=== PATIENT | female | born 1980 | race Caucasian/White ===

== ENCOUNTER → 2017-08-26 | Outpatient (REF) | payer OTHER ==
[2017-08-26 17:26] LABS: HCG, SERUM QUANTITATIVE 85588 MIU/ML
[2017-08-26 17:54] LABS: HEMOGLOBIN 12.1 g/dl (12.0-16.0); MEAN CORPUSCULAR HEMOGLOBIN 29.9 pg (27.0-33.0); MEAN CORPUSCULAR HGB CONC 32.7 g/dl (32.0-36.5); MEAN CORPUSCULAR VOLUME 91.4 fl (80.0-96.0); PLATELET COUNT, AUTOMATED 370 10^3/uL (150-450); RED BLOOD COUNT 4.05 10^6/uL (4.00-5.40); RED CELL DISTRIBUTION WIDTH 12.8 % (11.5-14.5); WHITE BLOOD COUNT 10.6 10^3/uL (4.0-10.0)
[2017-08-27 09:58] LABS: RUBELLA IgG QUALITATIVE IMMUNE (IMMUNE)
[2017-08-27 10:13] LABS: HBsAg Prenatal NEGATIVE (NEGATIVE)
[2017-08-27 10:28] LABS: HIV 1&2 SCREEN CENTAUR NEGATIVE (NEGATIVE)
== END ==
LOC: M LAB REF 16:32
DX: O36.80X0 Pregnancy with inconclusive fetal viability, not applicable or unspecified (principal)
CPT/HCPCS: 86762

== ENCOUNTER → 2017-09-21 | Outpatient (REF) | payer OTHER ==
[2017-09-21 17:20] LABS: FREE T4 0.74 NG/DL (0.76-1.46)
== END ==
LOC: M LAB REF 16:27
DX: E04.2 Nontoxic multinodular goiter (principal)

== ENCOUNTER → 2018-01-12 | Outpatient (CLI) | payer OTHER ==
[2018-01-12 11:18] LABS: HEMATOCRIT 34.3 % (36.0-47.0); HEMOGLOBIN 11.6 g/dl (12.0-15.5); MEAN CORPUSCULAR HEMOGLOBIN 30.6 pg (27.0-33.0); MEAN CORPUSCULAR HGB CONC 33.8 g/dl (32.0-36.5); MEAN CORPUSCULAR VOLUME 90.5 fl (80.0-96.0); PLATELET COUNT, AUTOMATED 286 10^3/uL (150-450); RED BLOOD COUNT 3.79 10^6/uL (4.00-5.40); WHITE BLOOD COUNT 10.8 10^3/uL (4.0-10.0)
[2018-01-12 12:09] LABS: GLUCOSE CHALLENGE TEST 1 HOUR 120 MG/DL (LESS THAN 140)
== END ==
LOC: M LAB 09:29
DX: Z34.82 Encounter for supervision of other normal pregnancy, second trimester (principal); Z3A.00 Weeks of gestation of pregnancy not specified
CPT/HCPCS: 82950

== ENCOUNTER 2018-03-15 12:25 | Outpatient (CLI) | payer OTHER ==
[2018-03-15 14:04] LABS: HEMATOCRIT 36.4 % (36.0-47.0); HEMOGLOBIN 12.2 g/dl (12.0-15.5); MEAN CORPUSCULAR HEMOGLOBIN 30.4 pg (27.0-33.0); MEAN CORPUSCULAR HGB CONC 33.5 g/dl (32.0-36.5); MEAN CORPUSCULAR VOLUME 90.8 fl (80.0-96.0); PLATELET COUNT, AUTOMATED 226 10^3/uL (150-450); RED BLOOD COUNT 4.01 10^6/uL (4.00-5.40); WHITE BLOOD COUNT 7.8 10^3/uL (4.0-10.0)
[2018-03-15 14:39] LABS: ALT/SGPT 15 U/L (12-78); AST/SGOT 17 U/L (7-37); BILIRUBIN,TOTAL 0.2 MG/DL (0.2-1.0); CREATININE FOR GFR 0.66 MG/DL (0.55-1.30); GLOMERULAR FILTRATION RATE > 60.0 (>60); LDH LACTATE DEHYDROGENASE 177 U/L (84-246)
[2018-03-15 14:55] LABS: TOTAL PROTEIN,RANDOM URINE < 5.0 MG/DL (0.0-12.0)
[2018-03-15 16:15] LABS: URIC ACID 5.5 MG/DL (2.6-6.0)
[2018-03-15 16:53] LABS: CREATININE,RANDOM URINE 14.4 MG/DL
== END 2018-03-15 18:30 | disposition home or self-care (01) ==
LOC: M LDO 12:25
DX: O13.9 Gestational [pregnancy-induced] hypertension without significant proteinuria, unspecified trimester (principal); Z3A.36 36 weeks gestation of pregnancy
CPT/HCPCS: 59025

== ENCOUNTER → 2018-03-16 | Outpatient (REF) | payer OTHER ==
[2018-03-16 15:45] LABS: CREATININE, URINE 40.9 MG/DL; URINE TOTAL PROTEIN < 5.0 MG/DL (0-12)
[2018-03-16 15:55] LABS: CREATININE 24 HOUR, URINE 1513.3 MG/24HR (600-1800); TOTAL VOLUME, URINE 3700 ML
== END ==
LOC: M LAB REF 14:38
DX: Z01.89 Encounter for other specified special examinations (principal)

== ENCOUNTER 2018-03-22 15:22 | Inpatient (IN) | payer OTHER ==
[2018-03-22] MEDS: LR 1,000 ML IV (16:41)
[2018-03-22 17:46] LABS: HEMATOCRIT 39.7 % (36.0-47.0); HEMOGLOBIN 13.5 g/dl (12.0-15.5); MEAN CORPUSCULAR HEMOGLOBIN 30.9 pg (27.0-33.0); MEAN CORPUSCULAR VOLUME 90.8 fl (80.0-96.0); PLATELET COUNT, AUTOMATED 205 10^3/uL (150-450); RED BLOOD COUNT 4.37 10^6/uL (4.00-5.40); RED CELL DISTRIBUTION WIDTH 14.2 % (11.5-14.5); WHITE BLOOD COUNT 8.4 10^3/uL (4.0-10.0)
[2018-03-22 18:21] LABS: ALT/SGPT 16 U/L (12-78); AST/SGOT 17 U/L (7-37); BILIRUBIN,TOTAL 0.2 MG/DL (0.2-1.0); CREATININE FOR GFR 0.55 MG/DL (0.55-1.30); GLOMERULAR FILTRATION RATE > 60.0 (>60); LDH LACTATE DEHYDROGENASE 176 U/L (84-246); TOTAL PROTEIN,RANDOM URINE < 5.0 MG/DL (0.0-12.0); URIC ACID 5.4 MG/DL (2.6-6.0)
[2018-03-22 18:21] LABS: CREATININE,RANDOM URINE 27.1 MG/DL
[2018-03-22] MEDS: miSOPROStol 50 MCG 1/2 TAB (S0191) PO ×2 (19:22→23:32)
[2018-03-23] MEDS: LR 1,000 ML IV (00:22)
[2018-03-23] MEDS: miSOPROStol 50 MCG 1/2 TAB (S0191) PO (03:35)
[2018-03-23 05:40] LABS: HEMATOCRIT 36.3 % (36.0-47.0); HEMOGLOBIN 12.2 g/dl (12.0-15.5); MEAN CORPUSCULAR HEMOGLOBIN 30.7 pg (27.0-33.0); MEAN CORPUSCULAR HGB CONC 33.6 g/dl (32.0-36.5); MEAN CORPUSCULAR VOLUME 91.4 fl (80.0-96.0); PLATELET COUNT, AUTOMATED 201 10^3/uL (150-450); RED BLOOD COUNT 3.97 10^6/uL (4.00-5.40); RED CELL DISTRIBUTION WIDTH 14.1 % (11.5-14.5); WHITE BLOOD COUNT 9.3 10^3/uL (4.0-10.0)
[2018-03-23 05:57] LABS: ALT/SGPT 14 U/L (12-78); AST/SGOT 16 U/L (7-37); BILIRUBIN,TOTAL 0.2 MG/DL (0.2-1.0); GLOMERULAR FILTRATION RATE > 60.0 (>60); LDH LACTATE DEHYDROGENASE 155 U/L (84-246)
[2018-03-23] MEDS ORDERED: ceFAZolin 2 GM/D5W 50 ML IV BAG (J0690 PER 500MG) As Ordered (07:32)
[2018-03-23] MEDS ORDERED: BICITRA 30ML SOLN UDC As Ordered (07:32)
[2018-03-23] MEDS: BICITRA 30ML SOLN UDC PO (08:00)
[2018-03-23] MEDS ORDERED: MORPHINE PRES-FREE INJ 10 MG/10 ML VIAL (J2274) As Ordered (08:01)
[2018-03-23] MEDS ORDERED: OXYTOCIN INJ 10 UNITS/ML VIAL (J2590) As Ordered ×4 (08:10→08:35)
[2018-03-23] MEDS ORDERED: ePHEDrine SULFATE 25 MG/5 ML(5MG/ML) SYRINGE As Ordered (08:26)
[2018-03-23] MEDS ORDERED: PHENYLephrine HCL 500 MCG/5 ML (100MCG/ML) SYRINGE (J2370) As Ordered (08:26)
[2018-03-23] MEDS ORDERED: ONDANSETRON 4MG/2ML VIAL (J2405) As Ordered (08:29)
[2018-03-23] MEDS ORDERED: dexameTHASONE 4 MG/ML 1ML VIAL (J1100) As Ordered (08:29)
[2018-03-23 08:33] LABS: CORD GAS ABE V -2.8; CORD GAS HCO3 V 22.3 MEQ/L; CORD GAS O2 SAT V 56.6 %; CORD GAS PH V 7.364 UNITS; CORD GAS PO2 V 22.6 mmHg; CORD GAS SBC V 21.1 MEQ/L; CORD GAS TCO2 V 23.5 MEQ/L
[2018-03-23 08:34] LABS: CORD GAS ABE A 0.8; CORD GAS PCO2 A 60.8 mmHg; CORD GAS PH A 7.296 UNITS; CORD GAS PO2 A 24.5 mmHg; CORD GAS SBC A 24.1 MEQ/L; CORD GAS TCO2 A 30.8 MEQ/L
[2018-03-23] MEDS ORDERED: OXYTOCIN 30 UNITS IN 0.9% NaCl 500ML IV BAG (J2590) As Ordered (08:56)
[2018-03-23] MEDS ORDERED: LR 1,000 ML IV (09:00)
[2018-03-23] MEDS ORDERED: fentaNYL 100 MCG/2 ML INJECTION (J3010) IV (09:00)
[2018-03-23] MEDS: OXYTOCIN DRIP 30 UNITS in APPROPRIATE DILUENT 1 EA IV (09:00)
[2018-03-23] MEDS ORDERED: NALBUPHINE HCL 10 MG/ML AMP (J2300) IV (09:00)
[2018-03-23] MEDS ORDERED: ONDANSETRON 4MG/2ML VIAL (J2405) IV (09:00)
[2018-03-23] MEDS: MEASLES,MUMPS,RUBELLA VACCINE INJ (MMR-II) (90707) SC (19:54)
[2018-03-23] MEDS: RHOGAM 300 MCG (1500 IU) INJ (J2790) IM (19:54)
[2018-03-24 06:57] LABS: HEMATOCRIT 29.4 % (36.0-47.0); HEMOGLOBIN 9.9 g/dl (12.0-15.5); MEAN CORPUSCULAR HEMOGLOBIN 30.8 pg (27.0-33.0); MEAN CORPUSCULAR HGB CONC 33.7 g/dl (32.0-36.5); MEAN CORPUSCULAR VOLUME 91.6 fl (80.0-96.0); PLATELET COUNT, AUTOMATED 206 10^3/uL (150-450); RED BLOOD COUNT 3.21 10^6/uL (4.00-5.40); WHITE BLOOD COUNT 12.4 10^3/uL (4.0-10.0)
[2018-03-24] MEDS: PRENATAL VITAMINS CHEWABLE TABLET PO (09:09)
[2018-03-24] MEDS: NORCO, ANEXSIA 5/325MG TABLET (HYDROcodone/ACETAMINOPHEN) PO ×3 (09:09→19:34)
[2018-03-24] MEDS: CitaloPRAM (CeleXA) 10 MG TABLET PO (09:09)
[2018-03-24] MEDS: IBUPROFEN 800 MG TAB PO ×2 (09:10→18:11)
[2018-03-24] MEDS: INFLUENZA QUADRIVALENT PF VACCINE 0.5ML SYRINGE (90686) IM (09:10)
[2018-03-25] MEDS: IBUPROFEN 800 MG TAB PO ×2 (02:52→11:12)
[2018-03-25] MEDS: NORCO, ANEXSIA 5/325MG TABLET (HYDROcodone/ACETAMINOPHEN) PO (05:45)
[2018-03-25] MEDS: PRENATAL VITAMINS CHEWABLE TABLET PO (08:14)
[2018-03-25] MEDS: CitaloPRAM (CeleXA) 10 MG TABLET PO (08:14)
== END 2018-03-25 13:30 | disposition home or self-care (01) | DRG 766 ==
LOC: M LDI 15:22 → M OBS 03-23 10:39
PROVIDERS: Obstetrics & Gynecology
PROC: 10D00Z1 Extraction of Products of Conception, Low, Open Approach (ICD-10-PCS; principal; 2018-03-22 07:49)
PROC: 3E0DXGC Introduction of Other Therapeutic Substance into Mouth and Pharynx, External Approach (ICD-10-PCS; 2018-03-22 07:49)
DX: O13.4 Gestational [pregnancy-induced] hypertension without significant proteinuria, complicating childbirth (principal); Z37.0 Single live birth; Z3A.37 37 weeks gestation of pregnancy; O76 Abnormality in fetal heart rate and rhythm complicating labor and delivery; O09.523 Supervision of elderly multigravida, third trimester; O69.89X0 Labor and delivery complicated by other cord complications, not applicable or unspecified

== ENCOUNTER → 2019-03-22 | Outpatient (REF) | payer OTHER ==
[~2019-03-22] MED LIST: CITA10TA6 PO; IBUP80TA PO; IRON27TA2 PO; MAPA500T2 PO; PERCOCET PO; PRENTAB9 PO; VITA200016 PO
[2019-03-22 18:48] LABS: HEMOGLOBIN 13.4 g/dl (12.0-15.5); MEAN CORPUSCULAR HEMOGLOBIN 30.4 pg (27.0-33.0); MEAN CORPUSCULAR HGB CONC 33.5 g/dl (32.0-36.5); MEAN CORPUSCULAR VOLUME 90.7 fl (80.0-96.0); PLATELET COUNT, AUTOMATED 370 10^3/uL (150-450); RED BLOOD COUNT 4.41 10^6/uL (4.00-5.40); WHITE BLOOD COUNT 9.3 10^3/uL (4.0-10.0)
[2019-03-22 19:25] LABS: HCG, SERUM QUANTITATIVE 48417 MIU/ML
[2019-03-22 19:50] LABS: RUBELLA IgG QUALITATIVE IMMUNE (IMMUNE)
[2019-03-22 20:19] LABS: HIV 1&2 SCREEN CENTAUR NEGATIVE (NEGATIVE)
[2019-03-24 09:40] LABS: HEPATITIS C VIRUS ABY INDEX 0.1 INDEX (<0.8)
== END ==
LOC: M LAB REF 16:18
PROVIDERS: ATTEND Obstetrics & Gynecology
DX: O36.80X0 Pregnancy with inconclusive fetal viability, not applicable or unspecified (principal)

== ENCOUNTER → 2019-07-03 | Outpatient (CLI) | payer OTHER ==
--- NOTE | 2019-07-03 15:35 | REP ---
Clinical: Thyroid nodule. Technique: Real time baird scale ultrasound examination using linear high frequency transducer. Findings: The thyroid gland is relatively normal in contour, size, and parenchymal echo texture. Right lobe measures 5.2 x 2.3 x 1.3 cm. Isthmus measures 4 mm in width. Left lobe measures 5.8 x 2.0 x 1.3 cm. Multiple scattered cysts with small internal echogenic foci are noted throughout the bilateral thyroid lobes measuring up to 11 x 4 x 10 mm on the right and 9 x 4 x 9 mm on the left all having a similar morphology and likely representing scattered colloid cysts. No further significant irregular nodule is appreciated. Impression: Multiple scattered bilateral colloid cysts. Electronically Signed by Moshe Candelaria MD 07/03/2019 03:26 P
== END ==
LOC: M RAD 11:46
PROVIDERS: ATTEND Family Medicine
DX: E04.1 Nontoxic single thyroid nodule (principal)

== ENCOUNTER → 2019-07-12 | Outpatient (REF) | payer OTHER ==
[2019-07-12 17:40] LABS: CREATININE, URINE 68.4 MG/DL; URINE TOTAL PROTEIN 6.1 MG/DL (0-12)
[2019-07-12 18:28] LABS: CREATININE 24 HOUR, URINE 1436.4 MG/24HR (600-1800); TOTAL PROTEIN 24 HOUR URINE 128.1 MG/24HR (50-150)
== END ==
LOC: M LAB REF 15:53
PROVIDERS: ATTEND Obstetrics & Gynecology
DX: O13.2 Gestational [pregnancy-induced] hypertension without significant proteinuria, second trimester (principal)

== ENCOUNTER → 2019-08-03 | Outpatient (CLI) | payer OTHER ==
[2019-08-03 11:38] LABS: HEMATOCRIT 37.1 % (36.0-47.0); HEMOGLOBIN 12.2 g/dl (12.0-15.5); MEAN CORPUSCULAR HEMOGLOBIN 30.4 pg (27.0-33.0); MEAN CORPUSCULAR HGB CONC 32.9 g/dl (32.0-36.5); MEAN CORPUSCULAR VOLUME 92.5 fl (80.0-96.0); PLATELET COUNT, AUTOMATED 270 10^3/uL (150-450); RED BLOOD COUNT 4.01 10^6/uL (4.00-5.40)
== END ==
LOC: M LAB 09:32
PROVIDERS: ATTEND Obstetrics & Gynecology
DX: Z34.82 Encounter for supervision of other normal pregnancy, second trimester (principal); Z3A.00 Weeks of gestation of pregnancy not specified

== ENCOUNTER → 2019-08-11 | Outpatient (CLI) | payer OTHER | LOC: M LAB 08:04 | PROVIDERS: ATTEND Obstetrics & Gynecology | DX: R73.02 Impaired glucose tolerance (oral) (principal) ==

== ENCOUNTER 2019-10-01 03:10 | Outpatient (CLI) | payer OTHER ==
[2019-10-01] VITALS (8 sets, daily range): BP systolic 113–139; BP diastolic 64–75
[~2019-10-01] VITALS: Ht 176.5 cm; Wt 100.2 kg
[2019-10-01] MEDS ORDERED: PERCOCET 5MG/325MG TAB PO ONE (05:30)
[2019-10-01] MEDS ORDERED: LR 1,000 ML IV SCH (05:47)
[2019-10-01 06:17] LABS: BASO % 0.3 % (0.0-1.0); EOS # 0.1 10^3/uL (0.0-0.5); EOS % 1.1 % (0.0-3.0); HEMATOCRIT 36.6 % (36.0-47.0); LYMPH % 19.7 % (24.0-44.0); MEAN CORPUSCULAR HEMOGLOBIN 30.5 pg (27.0-33.0); MEAN CORPUSCULAR HGB CONC 32.8 g/dl (32.0-36.5); MEAN CORPUSCULAR VOLUME 93.1 fl (80.0-96.0); MONO # 0.8 10^3/uL (0.0-0.8); MONO % 8.2 % (0.0-5.0); NEUTROPHILS # 7.1 10^3/uL (1.5-8.5); NEUTROPHILS % 70.2 % (36.0-66.0); PLATELET COUNT, AUTOMATED 240 10^3/uL (150-450); RED BLOOD COUNT 3.93 10^6/uL (4.00-5.40); WHITE BLOOD COUNT 10.1 10^3/uL (4.0-10.0)
[2019-10-01] MEDS ORDERED: SILVER NITRATE APPLICATOR As Ordered ONE (08:49)
[2019-10-01] MEDS ORDERED: LIDOCAINE 2% W/EPIN INJ 20ML **PRES FREE XX ONE (09:45)
[2019-10-01] MEDS ORDERED: SILVER NITRATE APPLICATOR TOP ONE (10:15)
--- NOTE | 2019-10-01 10:42 | IPN ---
DATE: 10/01/2019 39-year-old G3, P2 female at 35 and 1/7 weeks gestation presents with severe pain near her tail bone for the past 7 days. Pain became worse. The pain is not relieved with Tylenol or a dose of ibuprofen. She denies fevers. The area appears swollen. OBJECTIVE: Blood pressure 136/75, pulse 81, afebrile. She appears unremarkable. Head and neck exam: Normal. Abdomen: Nontender, gravid, soft. heart tone is category 1. Contractions: None. 4 cm fluctuant area in the gluteal fold. This is exquisitely tender. Minimal cellulitis. Extremities: Nontender. ASSESSMENT: 39-year-old G3, P2 female at 35 and 1/7 weeks gestation with pilonidal cyst. PLAN: Consult general surgery for possible incision and drainage of pilonidal cyst. Start an IV and obtain a complete blood count. Patient will followup as per surgery recommendation.
[2019-10-01] MEDS ORDERED: OXYC1TAB23 PO (14:17)
== END 2019-10-01 10:54 | disposition home or self-care (01) ==
LOC: M LDO 03:10
PROVIDERS: ATTEND Specialist
DX: O99.89 Other specified diseases and conditions complicating pregnancy, childbirth and the puerperium (principal); M53.3 Sacrococcygeal disorders, not elsewhere classified; R22.2 Localized swelling, mass and lump, trunk; L05.91 Pilonidal cyst without abscess; Z3A.35 35 weeks gestation of pregnancy

== ENCOUNTER → 2019-10-10 | Outpatient (REF) | payer OTHER ==
[~2019-10-10] MED LIST changes: +OXYC1TAB23 PO
== END ==
LOC: M LAB REF 16:11
PROVIDERS: ATTEND Obstetrics & Gynecology
DX: Z34.83 Encounter for supervision of other normal pregnancy, third trimester (principal); Z3A.00 Weeks of gestation of pregnancy not specified

== ENCOUNTER 2019-10-25 05:34 | Inpatient (IN) | payer OTHER ==
[2019-10-25] VITALS (8 sets, daily range): BP systolic 111–132; BP diastolic 71–89
[~2019-10-25] VITALS: Ht 176.5 cm; Wt 100.1 kg
[~2019-10-25 05:34] MED LIST changes: +IRON65TA2 PO; +VITAD1000T PO
[2019-10-25] MEDS ORDERED: TUMS500C PO (05:53)
[2019-10-25] MEDS ORDERED: BICITRA 30ML SOLN UDC PO ONE (06:00)
[2019-10-25] MEDS ORDERED: ceFAZolin SOD 2 GM in IV 1 EA IV ONE (06:00)
[2019-10-25 06:37] LABS: HEMATOCRIT 38.2 % (36.0-47.0); HEMOGLOBIN 12.8 g/dl (12.0-15.5); MEAN CORPUSCULAR HEMOGLOBIN 30.3 pg (27.0-33.0); MEAN CORPUSCULAR HGB CONC 33.5 g/dl (32.0-36.5); MEAN CORPUSCULAR VOLUME 90.3 fl (80.0-96.0); PLATELET COUNT, AUTOMATED 212 10^3/uL (150-450); RED BLOOD COUNT 4.23 10^6/uL (4.00-5.40); WHITE BLOOD COUNT 8.5 10^3/uL (4.0-10.0)
[2019-10-25] MEDS ORDERED: OXYTOCIN DRIP 30 UNITS in IV 1 EA IV SCH (07:21)
[2019-10-25] MEDS ORDERED: RHOGAM 300 MCG (1500 IU) INJ (J2790) IM SCH (07:30)
[2019-10-25] MEDS ORDERED: ONDANSETRON 4 MG TAB PO PRN (07:30)
[2019-10-25] MEDS ORDERED: IBUPROFEN 600 MG TAB PO PRN (07:30)
[2019-10-25] MEDS ORDERED: MEASLES,MUMPS,RUBELLA VACCINE INJ (MMR-II) (90707) SC SCH (07:30)
[2019-10-25] MEDS ORDERED: MOM 30ML SUSPENSION UDC PO PRN (07:30)
[2019-10-25] MEDS ORDERED: diphenhydrAMINE 50MG/ML VIAL (J1200) IV PRN (07:42)
[2019-10-25] MEDS ORDERED: NALBUPHINE HCL 10 MG/ML AMP (J2300) IV PRN (07:42)
[2019-10-25] MEDS ORDERED: ONDANSETRON 4MG/2ML VIAL IV PRN ×2 (07:42→08:45)
[2019-10-25] MEDS ORDERED: NALOXONE INJ 0.4MG/1ML VIAL (J2310 PER 1MG) IV PRN ×2 (07:42)
[2019-10-25] MEDS ORDERED: METOCLOPRAMIDE INJ 10MG/2ML VIAL (J2765 PER 1) IV PRN (07:42)
[2019-10-25] MEDS ORDERED: MORPHINE PRES-FREE INJ 10 MG/10 ML VIAL (J2274) As Ordered ONE (08:05)
[2019-10-25] MEDS ORDERED: KETOROLAC 60 MG/2 ML VIAL As Ordered ONE (08:05)
[2019-10-25] MEDS ORDERED: dexameTHASONE 4 MG/ML 1ML VIAL (J1100 PER 1MG) As Ordered ONE (08:05)
[2019-10-25] MEDS ORDERED: PHENYLephrine HCL 500 MCG/5 ML (100MCG/ML) SYRINGE (J2370) As Ordered ONE (08:05)
[2019-10-25] MEDS ORDERED: OXYTOCIN 30 UNITS IN 0.9% NaCl 500ML IV BAG (J2590) As Ordered ONE ×2 (08:05→09:05)
[2019-10-25] MEDS ORDERED: ONDANSETRON 4MG/2ML VIAL As Ordered ONE (08:05)
[2019-10-25 08:21] LABS: CORD GAS HCO3 A 29.4 MEQ/L; CORD GAS PCO2 A 65.7 mmHg; CORD GAS PH A 7.269 UNITS; CORD GAS PO2 A 16.1 mmHg; CORD GAS TCO2 A 31.4 MEQ/L
[2019-10-25 08:22] LABS: CORD GAS ABE A 0.6; CORD GAS O2 SAT A 26.6 %; CORD GAS SBC A 23.2 MEQ/L
[2019-10-25 08:25] LABS: CORD GAS PCO2 V 51.5 mmHg; CORD GAS PH V 7.321 UNITS; CORD GAS PO2 V 35.3 mmHg
[2019-10-25 08:26] LABS: CORD GAS ABE V -0.9; CORD GAS O2 SAT V 76.5 %; CORD GAS SBC V 23.2 MEQ/L; CORD GAS TCO2 V 27.6 MEQ/L
[2019-10-25] MEDS ORDERED: fentaNYL 100 MCG/2 ML INJECTION (J3010) IV PRN (08:45)
[2019-10-25] MEDS: PRENATAL VITAMINS CHEWABLE TABLET PO SCH (09:00)
[2019-10-25] MEDS: DOCUSATE SODIUM 100 MG CAP PO SCH ×2 (09:00→20:10)
--- NOTE | 2019-10-25 09:44 | RO ---
DATE OF PROCEDURE: 10/25/2019 Ryan is 39-year-old female who presented at term for an elective repeat section. She also desires permanent tubal sterilization. PREOPERATIVE DIAGNOSES: 1. Term for elective repeat section. 2. Desires permanent tubal sterilization. POSTOPERATIVE DIAGNOSES: PROCEDURES DONE DURING THIS ADMISSION: 1. Repeat section. 2. Revision of old scar. 3. Bilateral salpingectomy. ANESTHESIA: Spinal. SURGEON: Eliot Lozada DO HEDDLE MACHINE OPERATOR: Eliseo Jim DO COMPLICATIONS: None. ESTIMATED BLOOD LOSS: 600 mL. FINDINGS: Live male infant in occiput transverse position, scores 9 and 9, weight 6 pounds 7 ounces, normal-appearing tubes and ovaries. DESCRIPTION OF PROCEDURE: After obtaining informed consent, the patient was taken to the operating room where spinal anesthetic was found to be adequate. She was then draped and prepped in usual sterile fashion in supine position with the help of my assistant professor of life sciences, Dr. Jim. An elliptical incision was made over the old scar. The old scar was removed. The incision was then carried down to the fascia. The fascia was incised in midline fashion and carried through laterally. Superior aspect of the fascia was then grasped with two Jone clamps. Dissected off the rectus muscles sharply. The inferior aspect was dissected off in similar fashion. Rectus muscles in midline fashion. Peritoneal cavity entered bluntly. Superior and inferior dissection of the peritoneum was then done with good visualization of the bladder. At this point, a Mobius skin retractor was placed. A low-transverse uterine incision was made. was delivered in atraumatic fashion. Nose and mouth bulb suctioned. Cord doubly clamped and cut, and was handed over to awaiting warmer. Cord blood and cord gas were sent. Placenta removed manually. Uterus cleared of all clot and debris, and the uterine incision was then repaired in two separate layers of 0 Vicryl suture. All superficial bleeders were coagulated, and the skin was reapproximated in subcuticular fashion using 3-0 Vicryl on a Giancarlo. Dermabond placed. Dressing placed. The patient tolerated the procedure well. She was then transferred to recovery room in stable condition.
[2019-10-26] MEDS: PERCOCET 5MG/325MG TAB PO PRN ×4 (02:10→20:29)
[2019-10-26 02:12] VITALS: BP 109/65
[2019-10-26 05:45] VITALS: BP 103/64
[2019-10-26 07:32] LABS: HEMATOCRIT 30.7 % (36.0-47.0); MEAN CORPUSCULAR HEMOGLOBIN 30.7 pg (27.0-33.0); MEAN CORPUSCULAR HGB CONC 33.6 g/dl (32.0-36.5); MEAN CORPUSCULAR VOLUME 91.4 fl (80.0-96.0); PLATELET COUNT, AUTOMATED 179 10^3/uL (150-450); RED BLOOD COUNT 3.36 10^6/uL (4.00-5.40); WHITE BLOOD COUNT 10.6 10^3/uL (4.0-10.0)
[2019-10-26] MEDS: DOCUSATE SODIUM 100 MG CAP PO SCH ×2 (07:37→20:29)
[2019-10-26] MEDS: PRENATAL VITAMINS CHEWABLE TABLET PO SCH (07:37)
[2019-10-26 07:41] LABS: HEMOGLOBIN 10.3 g/dl (12.0-15.5)
[2019-10-26] MEDS ORDERED: PERCOCET PO (08:23)
[2019-10-26] MEDS ORDERED: IBUP80TA PO (08:23)
[2019-10-26 10:52] VITALS: BP 138/82
[2019-10-26] MEDS: CitaloPRAM (CeleXA) 10 MG TABLET PO SCH (11:11)
[2019-10-26 13:59] VITALS: BP 134/83
[2019-10-26] MEDS: IBUPROFEN 800 MG TAB PO PRN (16:36)
[2019-10-26 18:02] VITALS: BP 131/79
[2019-10-26 21:53] VITALS: BP 134/79
[2019-10-27] MEDS: IBUPROFEN 800 MG TAB PO PRN ×2 (01:06→12:40)
[2019-10-27] MEDS: PERCOCET 5MG/325MG TAB PO PRN ×2 (01:07→07:48)
[2019-10-27 01:56] VITALS: BP 135/81
[2019-10-27 06:16] VITALS: BP 126/71
[2019-10-27] MEDS: DOCUSATE SODIUM 100 MG CAP PO SCH (09:18)
[2019-10-27] MEDS: PRENATAL VITAMINS CHEWABLE TABLET PO SCH (09:18)
[2019-10-27] MEDS: CitaloPRAM (CeleXA) 10 MG TABLET PO SCH (09:18)
--- NOTE | 2019-10-28 08:19 | DSES ---
DATE OF ADMISSION: 10/25/2019 DATE OF DISCHARGE: 10/27/2019 FINAL DIAGNOSIS: 1. Term for elective repeat section. 2. Desires permanent tubal sterilization. PROCEDURES DONE DURING THIS ADMISSION: 1. Repeat section. 2. Bilateral salpingectomy. 3. Revision of old scar. CONDITION ON DISCHARGE: Stable. DISCHARGE INSTRUCTIONS: The patient is instructed to call if there is any severe bleeding, pain or temperature greater than 101. She was given a prescription for Percocet as needed for pain as well as Motrin. BRIEF HISTORY: Ryan is a 39-year-old female, 2, para 1-0-0-1, with a history of prior section who is being admitted at term for elective repeat section. She underwent the above-noted procedure and was then transferred to maternity for postoperative care. Postoperatively, she did well. She remained afebrile throughout her hospital stay. On postoperative day #, she was found to be stable. She was then discharged home to follow up in approximately 2 weeks for an incision check.
== END 2019-10-27 15:00 | disposition home or self-care (01) | DRG 785 ==
LOC: M LDI 05:34 → M OBS 10:13
PROVIDERS: ADMIT Obstetrics & Gynecology; ATTEND Obstetrics & Gynecology
PROC: 0UB70ZZ Excision of Bilateral Fallopian Tubes, Open Approach (ICD-10-PCS; 2019-10-25)
PROC: 10D00Z1 Extraction of Products of Conception, Low, Open Approach (ICD-10-PCS; principal; 2019-10-25 07:30)
DX: O34.211 Maternal care for low transverse scar from previous cesarean delivery (principal); Z37.0 Single live birth; Z3A.39 39 weeks gestation of pregnancy; O09.523 Supervision of elderly multigravida, third trimester; Z30.2 Encounter for sterilization

== ENCOUNTER → 2020-02-01 | Outpatient (CLI) | payer OTHER ==
[~2020-02-01] MED LIST changes: +D31000TA2 PO; +TUMS500C PO; -VITAD1000T PO
[2020-03-31 12:08] LABS: BLOOD UREA NITROGEN 14 MG/DL (7-18); CHLORIDE LEVEL 103 MEQ/L (98-107); CREATININE FOR GFR 1.03 MG/DL (0.55-1.30); GLOMERULAR FILTRATION RATE > 60.0 (>58); GLUCOSE, FASTING 78 MG/DL (70-100); POTASSIUM SERUM 4.9 MEQ/L (3.5-5.1); SODIUM LEVEL 139 MEQ/L (136-145)
[2020-03-31 12:09] LABS: CALCIUM LEVEL 9.3 MG/DL (8.5-10.1); CARBON DIOXIDE LEVEL 29.8 mmol/L (20-29)
[2020-03-31 12:11] LABS: HEMATOCRIT 43.3 % (36.0-47.0); HEMOGLOBIN 14.1 g/dl (12.0-15.5)
== END ==
LOC: M LAB 07:49
PROVIDERS: ATTEND Podiatrist
DX: Z01.818 Encounter for other preprocedural examination (principal); M72.2 Plantar fascial fibromatosis; M79.671 Pain in right foot

== ENCOUNTER 2020-02-09 07:26 | Day surgery (SDC) | payer OTHER ==
[~2020-02-09 07:26] MED LIST changes: +BACITRACIN PWD 50,000 UNITS VIAL ONE; +BUPIVACAINE HCL 0.5% 30 ML VIAL ONE; +LIDOCAINE 2% MDV 20ML VIAL ONE; +NEOSPORIN GU IRRIG 20 ML VIAL ONE
[2020-02-09] MEDS ORDERED: fentaNYL 100 MCG/2 ML INJECTION (J3010) ONE (07:58)
[2020-02-09] MEDS ORDERED: MIDAZOLAM INJ 2MG/2ML VIAL (J2250 PER 1MG) ONE (07:58)
[2020-02-09] MEDS ORDERED: ONDANSETRON 4MG/2ML VIAL ONE (07:58)
[2020-02-09] MEDS ORDERED: ceFAZolin 2 GM/D5W 50 ML IV BAG (J0690 PER 500MG) ONE (08:10)
[2020-02-09] MEDS ORDERED: propofoL 200 MG/20 ML VIAL ONE (09:53)
[2020-02-09] MEDS ORDERED: LIDOCAINE 2% 100MG/5ML SDV (FOR ANES.) ONE (09:53)
[2020-02-19] MEDS ORDERED: BACITRACIN PWD 50,000 UNITS VIAL ONE (06:44)
[2020-02-19] MEDS ORDERED: BUPIVACAINE HCL 0.5% 30 ML VIAL ONE (06:44)
[2020-02-19] MEDS ORDERED: NEOSPORIN GU IRRIG 20 ML VIAL ONE (06:44)
[2020-02-19] MEDS ORDERED: LIDOCAINE 2% MDV 20ML VIAL ONE (06:44)
[2020-02-19] MEDS ORDERED: MIDAZOLAM INJ 2MG/2ML VIAL (J2250 PER 1MG) ONE (07:58)
[2020-02-19] MEDS ORDERED: fentaNYL 100 MCG/2 ML INJECTION (J3010) ONE (07:58)
[2020-02-19] MEDS ORDERED: ONDANSETRON 4MG/2ML VIAL ONE (07:58)
[2020-02-19] MEDS ORDERED: ceFAZolin 2 GM/D5W 50 ML IV BAG (J0690 PER 500MG) ONE (08:10)
[2020-02-19] MEDS ORDERED: propofoL 200 MG/20 ML VIAL ONE (09:53)
[2020-02-19] MEDS ORDERED: LIDOCAINE 2% 100MG/5ML SDV (FOR ANES.) ONE (09:53)
--- NOTE | 2020-04-11 11:46 | RO ---
DATE OF OPERATION: 02/09/2020 PREOPERATIVE DIAGNOSIS: Lateral ankle instability, right ankle. POSTOPERATIVE DIAGNOSIS: Lateral ankle instability, right ankle. PROCEDURE: Brostrom-Vargas repair, right ankle. ANESTHESIA: General. HEMOSTASIS: Thigh tourniquet at 250 mm of mercury for 42 minutes. ESTIMATED BLOOD LOSS: Less than 1 mL. GENERAL UTILITY MAINTENANCE REPAIRER: None. DESCRIPTION OF OPERATION: On 02/09/2020, patient was taken from her hospital room to the operating room, placed on the operating table in the left lateral decubitus position. After general anesthesia was obtained, sterile prep was performed of the right lower extremity. Sterile draping was completed, and the following procedure was performed: BROSTROM-VARGAS LATERAL ANKLE REPAIR, RIGHT ANKLE: Attention was directed to the patient's right ankle, where a C-shaped incision was placed inferior and anterior to the lateral malleolus. The incision was deepened through subcutaneous tissues, and all coursing venous tributaries were identified, underscored, camped, cut, ligated, or electrocoagulated as necessary. The anterior talofibular ligament was seen and noted to be stretched as well as the calcaneofibular ligament. These ligaments were then identified and transected utilizing #2 FiberWire with the [id number] repair. The anterior talofibular ligament and the calcaneofibular ligament were shorted and repaired. The extensor retinaculum was then identified in the surgical site and was then tacked down to the fibula with #2 FiberWire with a [id number] closure. During the ligament and retinaculum repair, the foot was held in a pronated position. The wound was flushed with copious amounts of dilute bacitracin, neomycin, and polymyxin B solution. Subcutaneous tissues were coapted and maintained utilizing 4-0 Monocryl in a simple interrupted-type fashion. Skin was repaired with 3-0 nylon in a simple interrupted fashion and horizontal mattress fashion. A dry sterile dressing was applied, consisting of Adaptic, 4 x 4's, and Kerlix. A [id number] fiberglass cast was applied with the ankle held in a pronated position. Thigh pneumatic tourniquet was rapidly deflated. Instantaneous capillary filling time was noted to digits 1-5 of the patient's right foot. Patient, having apparently tolerated the surgical procedures well, was taken from the operating room (OR) to the recovery room for further monitoring by the anesthesia department. Postoperative instructions were given upon discharge. VINCE
== END 2020-02-09 12:35 | disposition home or self-care (01) ==
LOC: M SDC 07:26
PROVIDERS: ATTEND Podiatrist
DX: M25.371 Other instability, right ankle (principal); M79.671 Pain in right foot; M72.2 Plantar fascial fibromatosis; F41.9 Anxiety disorder, unspecified; K21.9 Gastro-esophageal reflux disease without esophagitis; Z87.891 Personal history of nicotine dependence; Z79.899 Other long term (current) drug therapy
CPT/HCPCS: 27698; 97116; 97161; J0690; J2250; J2405; J3010

== ENCOUNTER 2021-10-28 00:28 | Emergency (ER) | payer OTHER ==
[~2021-10-28] VITALS: Ht 176.5 cm; Wt 96.7 kg
[~2021-10-28 00:28] MED LIST changes: -BACITRACIN PWD 50,000 UNITS VIAL ONE; -BUPIVACAINE HCL 0.5% 30 ML VIAL ONE; -D31000TA2 PO; -LIDOCAINE 2% MDV 20ML VIAL ONE; -NEOSPORIN GU IRRIG 20 ML VIAL ONE; +VITA100093 PO
[2021-10-28] MEDS ORDERED: MELA10TA6 PO (00:39)
[2021-10-28] MEDS ORDERED: AMBI5TAB PO (00:39)
[2021-10-28] MEDS ORDERED: NS 1,000 ML IV ONE (04:10)
[2021-10-28 04:52] LABS: BASO % 0.1 % (0.0-1.0); EOS % 0.4 % (0.0-3.0); HEMATOCRIT 39.2 % (36.0-47.0); HEMOGLOBIN 13.4 g/dl (12.0-15.5); LYMPH # 0.6 10^3/uL (1.5-5.0); LYMPH % 5.8 % (24.0-44.0); MEAN CORPUSCULAR HEMOGLOBIN 30.2 pg (27.0-33.0); MEAN CORPUSCULAR HGB CONC 34.2 g/dl (32.0-36.5); MEAN CORPUSCULAR VOLUME 88.3 fl (80.0-96.0); MONO # 0.3 10^3/uL (0.0-0.8); NEUTROPHILS # 8.6 10^3/uL (1.5-8.5); NEUTROPHILS % 90.4 % (36.0-66.0); PLATELET COUNT, AUTOMATED 300 10^3/uL (150-450); RED BLOOD COUNT 4.44 10^6/uL (4.00-5.40); WHITE BLOOD COUNT 9.6 10^3/uL (4.0-10.0)
[2021-10-28 05:14] LABS: ALBUMIN 3.7 GM/DL (3.2-5.2); ALT/SGPT 41 U/L (12-78); BILIRUBIN,TOTAL 0.5 MG/DL (0.2-1.0); BLOOD UREA NITROGEN 16 MG/DL (7-18); CARBON DIOXIDE LEVEL 24 MEQ/L (21-32); CHLORIDE LEVEL 106 MEQ/L (98-107); CREATININE FOR GFR 0.69 MG/DL (0.55-1.30); GLOMERULAR FILTRATION RATE > 60.0 (>58); GLUCOSE, FASTING 108 MG/DL (70-100); LIPASE 131 U/L (73-393); MAGNESIUM LEVEL 1.9 MG/DL (1.8-2.4); SODIUM LEVEL 138 MEQ/L (136-145); TOTAL PROTEIN 7.2 GM/DL (6.4-8.2)
[2021-10-28] MEDS ORDERED: ISOVUE-370 76% 100ML VIAL As Ordered ONE (07:57)
[2021-10-28] MEDS ORDERED: ONDA4TAB6 PO (09:18)
[2021-10-28 09:24] VITALS: BP 121/79
== END 2021-10-28 09:35 | disposition home or self-care (01) ==
LOC: M ED 00:28
DX: A08.4 Viral intestinal infection, unspecified (principal); R94.31 Abnormal electrocardiogram [ECG] [EKG]; F41.9 Anxiety disorder, unspecified; Z91.048 Other nonmedicinal substance allergy status; Z79.899 Other long term (current) drug therapy
CPT/HCPCS: 71045; 74177; 80053; 81001; 83690; 83735; 84484; 85025; 87798; 93005; 96360; 96361; 99284; Q9967

== ENCOUNTER → 2022-03-23 | Outpatient (CLI) | payer OTHER ==
[~2022-03-23] MED LIST changes: +AMBI5TAB PO; +CITA20TA6 PO; +MELA10TA14 PO; +ONDA4TAB6 PO
== END ==
LOC: M LABSMTC 10:04
PROVIDERS: ATTEND Anesthesiology
DX: Z01.812 Encounter for preprocedural laboratory examination (principal); Z20.822 Contact with and (suspected) exposure to COVID-19

== ENCOUNTER 2022-03-26 08:10 | Day surgery (SDC) | payer OTHER ==
[~2022-03-26] VITALS: Ht 177.8 cm; Wt 90.2 kg
[~2022-03-26 08:10] MED LIST changes: +NS 1,000 ML IV ONE
[2022-03-26] MEDS ORDERED: propofoL 200 MG/20 ML VIAL As Ordered ONE ×2 (09:51→09:54)
[2022-03-26] MEDS ORDERED: LIDOCAINE 2% 100MG/5ML SDV (FOR ANES.) As Ordered ONE (09:51)
[2022-03-26 10:20] VITALS: BP 106/61
== END 2022-03-26 10:36 | disposition home or self-care (01) ==
LOC: M OPP 08:10
PROVIDERS: ATTEND Surgery
DX: Z12.11 Encounter for screening for malignant neoplasm of colon (principal); Z80.0 Family history of malignant neoplasm of digestive organs; Z83.71 Family history of colonic polyps; Z79.899 Other long term (current) drug therapy; Z91.048 Other nonmedicinal substance allergy status; E04.9 Nontoxic goiter, unspecified; F32.9 Major depressive disorder, single episode, unspecified; F41.9 Anxiety disorder, unspecified; Z87.2 Personal history of diseases of the skin and subcutaneous tissue; Z87.891 Personal history of nicotine dependence

== ENCOUNTER → 2022-07-17 | Outpatient (CLI) | payer OTHER ==
[~2022-07-17] MED LIST changes: -NS 1,000 ML IV ONE
== END ==
LOC: M SLEEP 20:00
PROVIDERS: ATTEND Nurse Practitioner Family
DX: R06.83 Snoring (principal)

== ENCOUNTER → 2022-11-18 | Outpatient (CLI) | payer OTHER | LOC: M WHC 08:56 | PROVIDERS: ATTEND Nurse Practitioner Family | DX: Z12.31 Encounter for screening mammogram for malignant neoplasm of breast (principal) ==

== ENCOUNTER 2023-06-26 13:03 | Emergency (ER) | payer OTHER ==
[~2023-06-26] VITALS: Ht 177.8 cm; Wt 97.7 kg
[2023-06-26] MEDS ORDERED: CELE40TA (13:15)
[2023-06-26] MEDS ORDERED: KETOROLAC 30 MG/ML 1ML VIAL IV ONE (15:05)
[2023-06-26] MEDS ORDERED: CYCLOBENZAPRINE 10MG TABLET PO ONE (15:05)
[2023-06-26] MEDS ORDERED: LIDOCAINE 5% (LIDODERM) PATCH TD ONE (15:05)
[2023-06-26] MEDS ORDERED: MEDR4PAK PO (16:33)
[2023-06-26] MEDS ORDERED: CYCL-707 PO (16:33)
[2023-06-26 17:03] VITALS: BP 146/92; TEMP 97.8; O2SAT 99
== END 2023-06-26 17:11 | disposition home or self-care (01) ==
LOC: EDBD 13:03 → M ED 13:03
DX: S16.1XXA Strain of muscle, fascia and tendon at neck level, initial encounter (principal); M54.50 Low back pain, unspecified; V49.50XA Passenger injured in collision with unspecified motor vehicles in traffic accident, initial encounter; F17.200 Nicotine dependence, unspecified, uncomplicated; F10.10 Alcohol abuse, uncomplicated; Y92.410 Unspecified street and highway as the place of occurrence of the external cause; Y93.89 Activity, other specified; Y99.9 Unspecified external cause status; Z79.02 Long term (current) use of antithrombotics/antiplatelets; Z79.899 Other long term (current) drug therapy; Z91.048 Other nonmedicinal substance allergy status
CPT/HCPCS: 71045; 73030; 73060; 73090; 73130; 96374; 99284; J1885

== ENCOUNTER → 2023-12-03 | Outpatient (CLI) | payer OTHER ==
[~2023-12-03] MED LIST changes: +CELE40TA; +CYCL-707 PO; +MEDR4PAK PO; +ONDA-282 PO; -ONDA4TAB6 PO
== END ==
LOC: M WHC 12:11
PROVIDERS: ATTEND Nurse Practitioner Family
DX: Z12.31 Encounter for screening mammogram for malignant neoplasm of breast (principal)

== ENCOUNTER → 2024-02-29 | Outpatient (CLI) | payer OTHER ==
[~2024-02-29] MED LIST changes: +GABA-1490
== END ==
LOC: M OUTALCOH 08:08
PROVIDERS: ATTEND Psychiatry & Neurology Psychiatry
DX: F10.20 Alcohol dependence, uncomplicated (principal); F17.200 Nicotine dependence, unspecified, uncomplicated

== ENCOUNTER 2024-03-31 08:35 | Outpatient (RCR) | payer OTHER ==
[~2024-03-31 08:35] MED LIST changes: -GABA-1490
== END 2024-04-03 ==
LOC: M OUTALCOH 08:35
PROVIDERS: ATTEND Psychiatry & Neurology Psychiatry
DX: F10.20 Alcohol dependence, uncomplicated (principal); F17.200 Nicotine dependence, unspecified, uncomplicated
CPT/HCPCS: 90832; 90834; G0463

== ENCOUNTER 2024-04-21 12:30 | Emergency (ER) | payer OTHER ==
[~2024-04-21] VITALS: Ht 177.8 cm; Wt 93.7 kg
[2024-04-21 12:32] VITALS: BP 137/84; TEMP 97.2; O2SAT 97
[2024-04-21] MEDS ORDERED: GABA-1490 (12:41)
[2024-04-21] MEDS: DERMABOND TOPICAL SKIN ADHESIVE TOP ONE (15:09)
== END 2024-04-21 15:25 | disposition home or self-care (01) ==
LOC: M ED 12:30
DX: S61.216A Laceration without foreign body of right little finger without damage to nail, initial encounter (principal); W26.0XXA Contact with knife, initial encounter; F17.200 Nicotine dependence, unspecified, uncomplicated; R51.9 Headache, unspecified; Y92.9 Unspecified place or not applicable; Y93.89 Activity, other specified; Y99.0 Civilian activity done for income or pay; Z79.899 Other long term (current) drug therapy; Z79.2 Long term (current) use of antibiotics

== ENCOUNTER → 2024-05-04 | Outpatient (RCR) | payer OTHER ==
[~2024-05-04] MED LIST changes: +GABA-1490
== END ==
LOC: M OUTALCOH 04-06 16:00
PROVIDERS: ATTEND Psychiatry & Neurology Psychiatry
DX: F10.20 Alcohol dependence, uncomplicated (principal); F17.200 Nicotine dependence, unspecified, uncomplicated

== ENCOUNTER → 2024-05-25 | Outpatient (REF) | payer OTHER | LOC: M LAB REF 16:40 | PROVIDERS: ATTEND Physician Assistant | DX: J02.9 Acute pharyngitis, unspecified (principal) ==

== ENCOUNTER 2024-05-29 08:58 | Outpatient (RCR) | payer OTHER | END 2024-06-03 | LOC: M OUTALCOH 08:58 | PROVIDERS: ATTEND Psychiatry & Neurology Psychiatry | DX: F10.20 Alcohol dependence, uncomplicated (principal); F17.200 Nicotine dependence, unspecified, uncomplicated ==

== ENCOUNTER → 2024-06-15 | Outpatient (CLI) | payer OTHER ==
[~2024-06-15] MED LIST changes: +PROHANCE 279.3MG/ML 15ML VIAL ONE; +PROHANCE 279.3MG/ML 5ML VIAL ONE
== END ==
LOC: M PLAIMG 09:20
PROVIDERS: ATTEND Registered Nurse
DX: Z12.39 Encounter for other screening for malignant neoplasm of breast (principal); N63.42 Unspecified lump in left breast, subareolar
CPT/HCPCS: A9576; C8908

== ENCOUNTER → 2024-06-22 | Outpatient (REF) | payer OTHER ==
[~2024-06-22] MED LIST changes: -PROHANCE 279.3MG/ML 15ML VIAL ONE; -PROHANCE 279.3MG/ML 5ML VIAL ONE
== END ==
LOC: M LAB REF 12:20
PROVIDERS: ATTEND Physician Assistant
DX: J02.9 Acute pharyngitis, unspecified (principal)

== ENCOUNTER 2024-07-19 16:16 | Emergency (ER) | payer OTHER ==
[~2024-07-19] VITALS: Ht 177.8 cm; Wt 92.3 kg
[2024-07-19] MEDS ORDERED: AMOX875T2 (16:47)
[2024-07-19] MEDS ORDERED: CELE1CAP99 (16:47)
[2024-07-19 17:37] LABS: BASO % 0.4 % (0.0-1.0); EOS # 0.2 10^3/uL (0.0-0.5); HEMATOCRIT 40.2 % (36.0-47.0); HEMOGLOBIN 13.6 g/dl (12.0-15.5); LYMPH # 3.1 10^3/uL (1.5-5.0); LYMPH % 37.9 % (24.0-44.0); MEAN CORPUSCULAR HEMOGLOBIN 30.8 pg (27.0-33.0); MEAN CORPUSCULAR HGB CONC 33.8 g/dl (32.0-36.5); MONO # 0.5 10^3/uL (0.0-0.8); MONO % 6.3 % (2.0-8.0); NEUTROPHILS # 4.3 10^3/uL (1.5-8.5); NEUTROPHILS % 53.3 % (36.0-66.0); PLATELET COUNT, AUTOMATED 331 10^3/uL (150-450); RED BLOOD COUNT 4.42 10^6/uL (4.00-5.40)
[2024-07-19 17:54] LABS: BLOOD UREA NITROGEN 12 MG/DL (9-23); CALCIUM LEVEL 8.8 MG/DL (8.5-10.1); CARBON DIOXIDE LEVEL 28 MMOL/L (20-31); CHLORIDE LEVEL 107 MMOL/L (98-107); GLOMERULAR FILTRATION RATE > 60.0 (>58); GLUCOSE, FASTING 81 MG/DL (60-100); POTASSIUM SERUM 3.8 MMOL/L (3.5-5.1); SODIUM LEVEL 141 MMOL/L (136-145)
[2024-07-19] MEDS: PERCOCET 5MG/325MG TAB PO ONE (20:33)
[2024-07-19] MEDS ORDERED: PERC5TAB12 PO (20:37)
[2024-07-19 20:46] VITALS: BP 138/91; TEMP 98.7; O2SAT 99
== END 2024-07-19 20:48 | disposition home or self-care (01) ==
LOC: M ED 16:16
DX: G89.18 Other acute postprocedural pain (principal); R51.9 Headache, unspecified; Z91.048 Other nonmedicinal substance allergy status; Z79.2 Long term (current) use of antibiotics; Z79.899 Other long term (current) drug therapy